=== PATIENT | male | born 1960 | race Caucasian/White ===

== ENCOUNTER 2018-01-15 17:48 | Emergency (ER) | payer SELFPAY ==
[~2018-01-15 17:48] MED LIST: LORA-475 PO; PAXI30TA7 PO
--- NOTE | 2018-01-15 18:10 | PD ---
HPI Chief Complaint: Arrest Time Seen by Provider: 17:45 Travel History International Travel<30 days: No Contact w/Intl Traveler<30days: No Traveled to known affect area: No History of Present Illness HPI Per EMS original 911 call was for chest pain, EMS arrived approximately 6 minutes later at which time the patient was was found down and in cardiopulmonary arrest, first rhythm V. fib. They initiated CPR, ACLS, intubation, and underwent 4 rounds of epinephrine and 2 mg of Narcan given prior to arrival in the ER without any success on return of pulses.. We have no further medical history. However the patient does have a history here at this hospital, and it is noted that he has a history of dentures, arthritis right knee replacement psychiatric problems not otherwise specified, anxiety. PFSH Past Medical History Arthritis: Yes Anxiety: Yes Cancer: No Cardiovascular Problems: No Endocrine: No Genitourinary: No Immune Disorder: No Musculoskeletal: Yes Neurologic: No Psychiatric: Yes Reproductive: No Respiratory: No Past Surgical History Oral Surgery: Yes (T & A, WISDOM TEETH EXTRACT.) Social History Alcohol Use: No Tobacco Use: No Substance Use: No Allergies-Medications (Allergen,Severity, Reaction): Coded Allergies: No Known Allergies (Unverified , 07/10/11) Reported Meds & Prescriptions Reported Meds & Active Scripts Active Reported Ativan (Lorazepam) 2 Mg Tab 2 Mg PO HS Paxil (Paroxetine HCl) 30 Mg Tab 60 Mg PO DAILY Review of Systems ROS Limitations: Clinical Condition Physical Exam Exam Limitations: Clinical Condition Narrative GENERAL: No signs of life, no evidence of trauma. SKIN: Pale, warm to touch HEAD: Atraumatic. Normocephalic. EYES: Pupils fixed and dilated ENT: No nasal bleeding or discharge. Mucous membranes moist. A 7.5 cm ET tube in place and secured NECK: Trachea midline. No JVD. CARDIOVASCULAR: Pulseless RESPIRATORY: Apneic GASTROINTESTINAL: Abdomen soft, non-tender, nondistended. Hepatic and splenic margins not palpable. MUSCULOSKELETAL: Extremities with cyanosis. No obvious deformities. NEUROLOGICAL: GCS 3T MDM Medical Decision Making Medical Screen Exam Complete: Yes Emergency Medical Condition: Yes Medical Record Reviewed: Yes Interpretation(s) EKG showed junctional ventricular rate in the 50s, wide-complex consistent with right bundle branch block Differential Diagnosis Not applicable Narrative Course Once patient arrived and prior to movement the ET tube was confirmed by myself with equal bilateral lung sounds, no borborygmi, good chest expansion and positive ET CO2 change. CPR was initiated immediately with 3 different compressors alternating every 2 minutes or so to ensure adequate compressions ACLS drugs such as epinephrine, magnesium, bicarb, amiodarone, and magnesium were all given during this code.... The patient briefly had bradycardic pulses present for which was given atropine, and dopamine was initiated but then became pulseless with PEA within 3 minutes. At this time bedside ultrasound was used which did not show any cardiac activity, code was terminated at 1809 Total estimated CPR on the field by EMS and transport 25 minutes and patient received continuous CPR in the ED department for another 25 minutes.. Total CPR ACLS time of 50 minutes without success All of these details were discussed with the mother and sister in a quiet room. Critical Care Narrative CRITICAL CARE NOTE: With evaluation of the patient, labs, EKG, receipt of radiologic studies, administration of medications, reevaluation the patient and discussion of the patient with the admitting physicians, the total critical care time was [30] minutes. Time to perform other separately billable procedures was not included in the critical care time. CPR: After proper placement sternum, rapid chest compressions at a rate of at least 120 were initiated, compression depth of at least 2-1/2 inches to 3 inches were performed, continuous ventilation by bag valve mask every 6 seconds. Compressors were changed every 2-3 minutes Diagnosis Primary Impression: Status post cardiopulmonary arrest Disposition: 20 Condition: Chandrakant Posey MD Jan 15, 2018 18:10
--- NOTE | 2018-01-16 12:48 | EKG ---
Date Performed: 01/15/2018 Time Performed: 18:02:41 PTAGE: 57 years EKG: There is a bradycardic rhythm without P-waves, which appears to have an alternating pattern of a right bundle branch block that is variable with rather wide QRS complex. The overall rate is 53 . In the anterolateral leads on the alternating right bundle pattern there is ST elevation in V4-V6 o f the second of the two wide complexes, all with the same rate. There are Q-waves septally, which may be due to previous septal AK, of undetermined age. Compared to previous tracing, all of these change s are new. Suspect myocardial injury or ischemia. Clinical correlation and follow up tracing strongly recommended. ABNORMAL ECG PREVIOUS TRACING : 04/21/2012 17.00 DOCTOR: Asad Sanchez Interpretating Date/Time 01/16/2018 12:47:52
== END 2018-01-15 18:09 | disposition expired ==
LOC: PHED 17:48
DX: I46.9 Cardiac arrest, cause unspecified (principal); R94.31 Abnormal electrocardiogram [ECG] [EKG]; F41.9 Anxiety disorder, unspecified; Z87.39 Personal history of other diseases of the musculoskeletal system and connective tissue
CPT/HCPCS: 92950; 93005